=== PATIENT | male | born 1955 | race Caucasian/White ===

== ENCOUNTER 2018-08-14 08:03 | Day surgery (SDC) ==
[2018-08-14] MEDS ORDERED: LIDOCAINE 1% 20 ML MDV ID STA (09:22)
[2018-08-14] MEDS ORDERED: VERSED ONE (09:45)
[2018-08-14] MEDS ORDERED: DIPRIVAN 20 ML VIAL IVP ONE (09:45)
--- NOTE | 2018-08-15 09:08 | OP ---
INDICATIONS FOR PROCEDURE: 63-year-old gentleman with history of adenomatous polyps removed three years ago. He presents for colonoscopy exam. MEDICATIONS: SEE ANESTHESIA NOTES. PROCEDURE: COLONOSCOPY, SNARE POLYPECTOMY. REPORT: The risks, benefits, alternatives and limitations were discussed in detail with the patient. Informed consent was obtained. After adequate sedation was achieved, a digital rectal exam revealed good tone, no masses. The colonoscope was introduced into the rectum and advanced under direct visual guidance to the cecum. The cecum was identified by the appendiceal orifice and IC valve. In the cecum there are three small polyps about 5 mm in size. I removed all three of these by snare technique. I then slowly withdrew the scope in circumferential manner examining the mucosa quite carefully. I looked on the proximal and distal side of folds and flexures as best as possible. I retroflexed the scope in the right colon and left colon to increase visualization. In the ascending colon there was a 5 mm to 6 mm sessile polyp that I removed by snare technique. In the proximal transverse colon there were two polyps about 6 mm in size, slightly raised. Both removed by snare technique and placed in a jar marked "proximal transverse". I identified two tattooed Zakiya Ink spots in the proximal transverse hepatic flexure area. There was no polyp tissue in the area. In the descending colon there is a raised 6 or 7 mm polyp that I removed by snare technique. There were small mouth diverticula scattered throughout the sigmoid colon. No other abnormalities noted including on retroflex view of the anal canal. There were non engorged hemorrhoidal veins. The prep was good. The withdrawal time was 18 minutes and 21 seconds. The patient tolerated the procedure well with stable vital signs and pulse oximetry throughout. IMPRESSION: 1. SEVEN (7) POLYPS REMOVED. 2. SIGMOID DIVERTICULOSIS. 3. TWO TATTOOS IN THE RIGHT COLON ABOVE. RECOMMENDATIONS: 1. High fiber diet. 2. Office visit as needed. 3. Await pathology results. If everything is benign as expected, I recommend repeat surveillance colonoscopy examination again in 3 years. 4. Will restart his Coumadin today as advised. He was given instructions and numbers to contact if he should develop any post colonoscopy complications such as bleeding. CC: DR. CALI RICE
[2018-08-15 12:23] VITALS: BP 128/78
== END 2018-08-14 11:30 | disposition home or self-care (01) ==
LOC: SURG 08:03
PROVIDERS: ATTEND Internal Medicine Gastroenterology
DX: Z86.010 Personal history of colon polyps (principal); K57.30 Diverticulosis of large intestine without perforation or abscess without bleeding; L81.8 Other specified disorders of pigmentation; D12.0 Benign neoplasm of cecum; D12.4 Benign neoplasm of descending colon; D12.3 Benign neoplasm of transverse colon; K63.5 Polyp of colon; D12.2 Benign neoplasm of ascending colon